=== PATIENT | male | born 1935 | race Caucasian/White ===

== ENCOUNTER 2017-11-01 19:07 | Observation (INO) | payer MEDICARE ==
[2015-02-07 18:42] VITALS: BMI 31.6
[~2017-11-01 19:07] MED LIST: BAYER CHEWABLE81 MG PO; BRILINTA90 MG PO; CENTRUM COMPLE1 EACH PO; CIPRO250 MG PO; CLEOCIN PREMIX600 MG PO; COREG25 MG PO; DITROPAN X5 MG/BOTTL PO; FLOMAX0.4 MG PO; HYZAAR 50-12.51 TAB PO; LEVAQUIN500 MG PO; LIPITOR40 MG PO; MELATONIN 3 MG1 TAB PO; MYCELEX TROCHE10 MG PO; NIASPAN500 MG PO; PERCOCET 5-3251 TAB PO; PROTONIX40 MG PO; VITAMIN B-1000 MCG/M IM; VITAMIN B-121000 MCG PO; VITAMIN C1000 MG PO; VITAMIN D31000 UNIT PO; ZYLOPRIM100 MG PO
[2017-11-01 20:14] LABS: APPEARANCE TURBID (CLEAR); BILIRUBIN NEGATIVE (NEGATIVE); COLOR RED (YELLOW); GLUCOSE NEGATIVE (NEGATIVE); KETONE NEGATIVE (NEGATIVE); NITRITE NEGATIVE (NEGATIVE); PROTEIN 1+ mg/dL (NEGATIVE); RED CELLS - URINE >50 /hpf (0-5); UROBILINOGEN NORMAL (NORMAL); WHITE CELLS - URINE 0-5 /hpf (0-5)
[2017-11-01 20:30] LABS: BASOPHILS 0.2 % (0-2); EOSINOPHILS 1.2 % (0-7); HEMATOCRIT 39.5 % (42.0-54.0); HEMOGLOBIN 13.5 g/dL (13.5-17.5); IMMATURE GRANULOCYTES 0.2 % (0-5); LYMPHOCYTES 22.9 % (15-50); MCHC 34.2 g/dL (31.0-37.0); MCV 90.8 fL (80.0-100.0); MEAN PLATELET VOLUME 9.5 fL (7.4-10.4); MONOCYTES 9.8 % (2-11); NEUTROPHILS 65.7 % (40-80); PLATELET COUNT 166 10x3/uL (130-400); RBC 4.35 10x6/uL (4.20-6.10); WBC 4.8 10x3/uL (4.8-10.8)
[2017-11-01 20:52] LABS: APTT 30.7 SECONDS (22.8-39.4); PROTIME 12.8 SECONDS (11.6-15.0)
[2017-11-01 20:53] LABS: ALBUMIN 3.3 g/dL (3.4-5.0); ALKALINE PHOSPHATASE 50 U/L (46-116); ALT (SGPT) 39 U/L (10-68); BILIRUBIN - TOTAL 0.29 mg/dL (0.2-1.3); CALC OSMOLALITY 283 mosm/kg (275-300); CALCIUM 9.3 mg/dL (8.5-10.1); CARBON DIOXIDE 22.8 mmol/L (21.0-32.0); CHLORIDE - SERUM 105 mmol/L (98-107); GLUCOSE 114 mg/dL (74-106); POTASSIUM - SERUM 3.9 mmol/L (3.5-5.1); SODIUM 141 mmol/L (136-145); UREA NITROGEN 19 mg/dL (7-18); eGFR NON AFRICAN AMERICAN 76 mL/min (90-120)
== END 2017-11-01 23:08 | disposition left against medical advice (07) ==
LOC: D.ER 19:07 → OBSVTIME 22:16 → D.M2 22:16 → D.EDHOLD 22:16 → D.M2 22:16 → D.EDHOLD 23:08
PROVIDERS: Family Medicine; Physician Assistant
DX: R31.9 Hematuria, unspecified (principal); C67.9 Malignant neoplasm of bladder, unspecified; I10 Essential (primary) hypertension; I25.10 Atherosclerotic heart disease of native coronary artery without angina pectoris

== ENCOUNTER 2019-04-20 10:19 | Outpatient (CLI) | payer MEDICARE ==
[~2019-04-20] VITALS: Ht 180.3 cm; Wt 110.0 kg
--- NOTE | ~2019-04-20 | HEMODYNAMI ---
PATIENT:EARL MARROQUIN MEDICAL RECORD: [id number] : 35 LOCATION:D.CAT ADMISSION DATE: 04/20/19 Generatedon:04/20/201913:10 Patient name: EARL MARROQUIN Patient #: [id number] SSN: Emerita OB: 1935 Date of study: 04/20/2019 Page: Of Hemodynamic Procedure Report Patient Data Patient Demographics Procedure consent was obtained First Name: EARL Gender: Male Last Name: LOPEZ : 1935 Middle Initial: R Age: 83 year(s) Patient #: [id number] Race: Additional ID: [id number] Contact details [address]: [address] [place] [address] State: [place] City: [place] Zip code: [address] Past Medical History History of disease Date Diagnosis Comments CAD Allergies Allergen Reaction Date Comments Reported Penicillins 02/08/2015 Other allergy 02/08/2015 LOTREL, LISINOPRIL Other allergy 04/20/2019 LISINOPRIL, LOTREL, PCN Admission Admission Data Admission Date: 04/20/2019 Admission Time: 10:19 Height (in.): 180.34 BSA: 4.48 (m2) Height (cm.): 458.06 BMI: 5.19 (kg/m2) Weight (lbs.): 240 Weight (kg.): 108.86 Lab Results Lab Result Date: 04/20/2019 Lab Result Time: 0:00 Biochemistry Name Units Result Min Max BUN mg/dl 26 --(----)-* 7 18 Creatinine mg/dl 1.2 --(---*)-- 0.6 1.3 CBC Name Units Result Min Max Hematocrit % 38 *-(----)-- 42 54 Hemoglobin g/dl 12.5 *-(----)-- 13.5 17.5 Procedure Procedure Types Cath Procedure Diagnostic Procedure Cardioversion External Procedure Description Procedure Date Procedure Date: 04/20/2019 Procedure Start Time: 12:58 Procedure End Time: 13:08 Procedure Staff Name Function Marilyn Love RT Monitor Wing Rangel RN Nurse Brenda Mckenzie RT [facility] Arsenio Walker CRNA Additional personnel Lester Bradshaw MD Performing Physician Procedure Data Cath Procedure Fluoroscopy Diagnostic fluoroscopy Total fluoroscopy Time: 0 time: 0 min min Diagnostic fluoroscopy Total fluoroscopy dose: 0 dose: 0 mGy mGy Estimated blood loss: 0 ml Procedure Complications No complications Procedure Medications Medication Administration Route Dosage 0.9% NaCl I.V. 100 ml/hr Refer to Anesthesia Notes for Sedation Medications Oxygen etCO2 Nasal cannula 4 l/min Hemodynamics Rest BSA: 4.48 (m2) HGB: 12.5 (g/dl) O2 Consumption: Estimated: 488.62 (ml/min) O2 Consumption indexed: Estimated:109.07 (ml/min/m) Heart Rate: 58 (bpm) Snapshots Pre Cath Intra NCS Post Cath Vital Signs Time Heart Resp SPO2 etCO2 NIBP (mmHg) Rhythm Pain Sedation Rate (ipm) (%) (mmHg) Status Level (bpm) 12:56:04 59 19 96 36.7 145/66(122) A-Fib 0 (11) 10(A) , No pain 13:01:09 53 14 92 17.2 161/75(123) NSR 0 (11) 8(A) , No pain 13:05:33 50 12 94 31.5 154/69(121) NSR 0 (11) 9(A) , No pain Medications Time Medication Route Dose Verified Delivered Reason Notes Effective ness by by 12:58:23 0.9% NaCl I.V. 100 Wing Wing Per ml/hr Claire Rangel physician RN RN 12:58:37 Refer to [facility] for Anesthesia Claire Rangel sedation Notes for RN RN Sedation Medications 12:59:05 Oxygen etCO2 4 Wing Wing for low Nasal l/min Claire Jonesigan 02 sats cannula RN deputy administrator Log Time Note 12:41:06 Procedure Status Elective Heart Cath (OP). 12:41:08 Time tracking: Regular hours (M-F 7:00 - 5:00) 12:41:11 Plan of Care:Hemodynamics will remain stable., Cardiac rhythm will remain stable., Comfort level will be maintained., Respiratory function will remain adequate., Patient/ family verbilizes understanding of procedure., Procedure tolerated without complication., Recovers from procedure without complications.. 12:41:20 Brenda Young RT(R) sent for patient. Start room use. 12:42:18 H&P Date Dictated: 04/16/2019 Within 30 days and on chart., H&P Addendum completed by physician on day of procedure. (MUST COMPLETE FOR ALL OUTPATIENTS). 12:42:33 Patient allergic to Other allergyLISINOPRIL, LOTREL, PCN 12:46:20 Patient Weight : 240 lbs 12:46:55 Patient Height : 180.34 inches 12:48:27 Patient arrived from Pre/Post Procedure Room to CCL 3. Patient remains on bed/stretcher for procedure. 12:48:29 Signed procedure consent form obtained from patient. 12:48:30 Warm blankets applied, and alex hugger turned on for patient comfort. 12:48:31 Correct patient and procedure confirmed by team. 12:48:32 ECG and BP/O2 sat monitors applied to patient. 12:48:46 Quick Combo opened to sterile field. 12:49:15 Lab Result : BUN 26 mg/dl 12:49:15 Lab Result : Creatinine 1.2 mg/dl 12:49:15 Lab Result : Hemoglobin 12.5 g/dl 12:49:15 Lab Result : Hematocrit 38 % 12:50:37 Arsenio Walker CRNA present and monitoring patient for TIVA. 12:53:08 Vital chart was started 12:53:10 Baseline sample Acquired. 12:53:15 Rhythm: atrial fibrillation 12:53:16 Full Disclosure recording started 12:53:17 Pre-procedure instructions explained to patient. 12:53:17 Pre-op teaching completed and patient verbalized understanding. 12:53:19 Family in patients room. 12:53:22 Patient NPO since Midnight. 12:53:24 Is the patient allergic to Iodine/contrast media? No. 12:53:27 Is patient on blood thinner?Yes 12:53:32 ACC The patient was administered the following blood thiners within the last 24 hours: Eliquis 12:53:35 Patient diabetic? No. 12:53:38 Previous problem with sedation/anesthesia? No ? 12:53:40 Snore? Yes 12:53:41 Sleep apnea? No 12:53:42 Deviated septum? No 12:53:43 Opens mouth fully? Yes 12:53:44 Sticks out tongue? Yes 12:53:46 Airway obstruction? No ? 12:53:49 Dentures? No ? 12:54:26 IV patent on arrival in left hand with 0.9% NaCl at O. 12:54:29 Lab results completed and on chart. 12:54:32 Alarms reviewed by R. N. 12:54:32 Sharps counted by scrub and verified by R.N. 12:57:49 --------ALL STOP TIME OUT------ 12:57:50 Final Timeout: patient, procedure, and site verified with staff and physician. All members of the team are in agreement. 12:57:54 Physical assessment completed. ASA score P 2 - A patient with mild systemic disease as per Lester Bradshaw MD. 12:57:57 Sedation plan: TIVA Medication:Propofol 12:58:05 Procedure started. 12:58:06 ------Cardioversion------ 12:58:23 0.9% NaCl 100 ml/hr I.V. was administered by Wing Rangel RN; Per physician; Verbal order read back and verified. 12:58:37 Refer to Anesthesia Notes for Sedation Medications was administered by Wing Rangel RN; for sedation; Verbal order read back and verified. 12:59:05 Oxygen 4 l/min etCO2 Nasal cannula was administered by Wing Rangel RN; for low 02 sats; Verbal order read back and verified. 12:59:48 Quick combo pads placed on patients chest and back. 12:59:56 Defibrillator synced and charged to 200 Joules. 13:00:07 Shock delivered. 13:01:15 Patient cardioverted to sinus bradycardia. 13:01:46 Procedure ended.(Physican Out) 13:02:36 Fluoroscopy time 00.00 minutes. 13:02:39 Fluoroscopy dose: 0 mGy 13:02:39 Flurop Dose total: 0 13:02:42 Dose Area Product 0 mGy/cm. 13:02:50 Post-procedure physical assessment completed. ASA score P 2 - A patient with mild systemic disease as per Lester Bradshaw MD. 13:02:57 Post procedure rhythm: sinus bradycardia 13:03:00 Estimated blood loss: 0 ml 13:03:02 Post procedure instruction explained to patient.Patient verbalizes understanding. 13:03:02 Patient needs reinforcement of post procedure teaching. 13:06:14 Procedure and supply charges have been captured, reviewed, submitted and are correct. 13:06:17 Procedure Complication : No complications 13:06:22 Operative report dictated upon procedure completion. 13:06:23 See physician's report for complete and final results. 13:06:25 Report given to Pre/Post Procedure Room. 13:06:27 Patient transfered to Pre/Post Procedure Room with Bed. 13:08:52 Vital chart was stopped 13:08:54 Procedure ended. 13:08:54 Full Disclosure recording stopped 13:08:57 End room use (Document Last) 13:09:21 End room use (Document Last) 13:10:02 End room use (Document Last) Device Usage Item Manufacture Quantity Catalog Hospital Part Current Minimal Lot# / Name Number Charge Number Stock Stock Gui ri# Code [employer] 1 [id number] Combo Signature Audit [place] Stage Time Signature Unsigned Intra-Procedure 04/20/2019 Marilyn Love 1:09:21 PM RT(R) Intra-Procedure 04/20/2019 Wing 1:10:02 PM Claire ENRIQUEZ Intra-Procedure 04/20/2019 Lester Bradshaw MD 1:10:28 PM [facility] [address] [place] [address]
[2019-04-20] MEDS ORDERED: LOPRESSOR25 MG PO (10:43)
[2019-04-20] MEDS ORDERED: ELIQUIS5 MG PO (10:43)
[2019-04-20] MEDS ORDERED: HYDROCHLOROTH12.5 M1 PO (10:44)
[2019-04-20] MEDS ORDERED: LANOXIN125 MCG PO (10:44)
[2019-04-20] MEDS ORDERED: OMEPRAZOLE40 MG PO (10:45)
[2019-04-20] MEDS ORDERED: AMIODARONE HCL200 MG PO (10:45)
[2019-04-20] MEDS ORDERED: COZAAR50 MG PO (10:46)
[2019-04-20] MEDS ORDERED: ACETAMINOPHEN500 M1 PO (10:46)
[2019-04-20] MEDS ORDERED: TYLENOL PM1 TAB PO (10:47)
[2019-04-20 11:02] VITALS: BP 141/67; Ht 180.3 cm; Wt 110.0 kg
[2019-04-20 11:37] LABS: CALCIUM 8.9 mg/dL (8.5-10.1); CARBON DIOXIDE 27.2 mmol/L (21.0-32.0); CREATININE - SERUM 1.2 mg/dL (0.6-1.3); POTASSIUM - SERUM 4.2 mmol/L (3.5-5.1)
[2019-04-20 11:40] LABS: INR 1.51 (0.85-1.17); PROTIME 17.6 SECONDS (11.6-15.0)
[2019-04-20 12:19] LABS: BASOPHILS 0.2 % (0-2); HEMOGLOBIN 12.5 g/dL (13.5-17.5); IMMATURE GRANULOCYTES 0.3 % (0-5); LYMPHOCYTES 15.5 % (15-50); MCH 29.5 pg (26.0-34.0); MCHC 32.9 g/dL (31.0-37.0); MCV 89.6 fL (80.0-100.0); MEAN PLATELET VOLUME 10.4 fL (7.4-10.4); MONOCYTES 8.6 % (2-11); NEUTROPHILS 74.4 % (40-80); PLATELET COUNT 198 10x3/uL (130-400); RBC 4.24 10x6/uL (4.20-6.10); RDW 14.8 % (11.5-14.5); WBC 6.2 10x3/uL (4.8-10.8)
--- NOTE | 2019-04-20 13:16 | NUR ---
PT ARRIVED BY STRETCHER. PLACED ON MONITORS. ASSESSMENT COMPLETED. DR. DUQUE AT BEDSIDE AND UPDATED PT'S FAMIILY. CALL LIGHT WITHIN REACH.
--- NOTE | 2019-04-20 13:30 | NUR ---
PT SITTING UP EATING. DENIES NAUSEA/PAIN AT THIS TIME. VSS. STILL IN SR WITH FREQUENT PACs. FAMILY AT BEDSIDE
--- NOTE | 2019-04-20 14:00 | NUR ---
VSS. PT IN SINUS LUCY WITH PACs. HR 56. BP STABLE. FAMILY AT BEDSIDE.
--- NOTE | 2019-04-20 14:10 | NUR ---
PIV D/C'D WITH CATH TIP INTACT. PT TOLERATED WELL. VSS. DISCUSSED DISCHARGE INSTRUCTIONS WITH PT AND PT'S FAMILY. THEY VOICED UNDERSTANDING. PT INSTRUCTED TO GET UP AND DRESSED. FAMILY AT BEDSIDE TO ASSIST.
--- NOTE | 2019-04-20 14:20 | NUR ---
PT VOIDED IN URINAL APPROX 150cc OF YELLOW URINE. PT TAKEN OUT TO VEHICLE BY WHEELCHAIR. NO S/S OF DISTRESS NOTED. ALL BELONGINGS AND PAPERWORK IN HAND.
== END 2019-04-20 14:10 | disposition home or self-care (01) ==
LOC: D.CATH 10:19
PROVIDERS: ATTEND Internal Medicine Interventional Cardiology
DX: I48.91 Unspecified atrial fibrillation (principal)

== ENCOUNTER → 2019-05-25 17:52 | Outpatient (CLI) | payer MEDICARE ==
[2019-04-20 11:02] VITALS: BMI 33.8
[~2019-05-25 17:52] MED LIST changes: +ACETAMINOPHEN500 M1 PO; +AMIODARONE HCL200 MG PO; +COZAAR50 MG PO; +ELIQUIS5 MG PO; +HYDROCHLOROTH12.5 M1 PO; +LANOXIN125 MCG PO; +LOPRESSOR25 MG PO; +OMEPRAZOLE40 MG PO; +TYLENOL PM1 TAB PO
[2019-05-25 18:38] LABS: APPEARANCE CLEAR (CLEAR); BILIRUBIN NEGATIVE (NEGATIVE); COLOR YELLOW (YELLOW); GLUCOSE NEGATIVE (NEGATIVE); KETONE NEGATIVE (NEGATIVE); NITRITE NEGATIVE (NEGATIVE); PROTEIN TRACE mg/dL (NEGATIVE); UROBILINOGEN NORMAL (NORMAL)
== END | disposition home or self-care (01) ==
LOC: D.LABREF 17:52
PROVIDERS: ATTEND Family Medicine
DX: N39.0 Urinary tract infection, site not specified (principal)